=== PATIENT | male | born 1990 | race Caucasian/White ===

== ENCOUNTER → 2016-07-14 | Outpatient (CLI) | payer OTHER ==
--- NOTE | 2016-07-14 16:33 | US ---
EXAMINATION TYPE: US abdomen limited DATE OF EXAM: 07/14/2016 4:03 PM COMPARISON: NONE CLINICAL HISTORY: 26-year-old male K43.9 Ventral Hernia. Patient lifts weights and felt strain, now h as palpable area just superior to the umbilicus, also, the physician felt left lower abdominal wall m ay be of concern as well TECHNIQUE: Multiple targeted sonographic images were obtained. Assess for hernia at location of: sup erior to umbilicus and lower left abdominal wall Real-time scanning was performed by the bench tool maker utilizing Valsalva and additional dynamic maneuve rs to assess for hernia. FINDINGS: 1. At patient's area of concern just superior to the umbilicus there is a break in the abdominal wal l musculature measuring approximately 5 mm wide with non peristalsing content extending anteriorly in to the subcutaneous fat. This hernia sac is not well-defined but may measure up to 2.3 cm wide. 2. At the lower left abdominal wall, no discrete abnormality is identified. IMPRESSION: 1. Suggestion of a small ventral midline supraumbilical hernia measuring approximately 2.3 cm wide wi th the abdominal wall defect approximately 5 mm wide. No herniating small bowel seen. 2. No specific abnormality seen along the anterior abdominal wall of the left lower quadrant.
== END | disposition home or self-care (01) ==
LOC: RADUSWWP 15:43
PROVIDERS: ATTEND Family Medicine
DX: K43.9 Ventral hernia without obstruction or gangrene (principal)
CPT/HCPCS: 76705

== ENCOUNTER 2017-04-10 05:33 | Observation (INO) | payer OTHER ==
[2017-04-06 11:33] VITALS: BMI 31.6
--- NOTE | 2017-04-09 15:06 | P.GSHP ---
History of Present Illness H&P Date: 04/10/17 Chief Complaint: Ventral hernia Patient was last seen in September in the office. The patient has complaints of a small incarcerated ventral hernia and a small umbilical hernia. Recently he contacted us to schedule surgical repair. Denies nausea vomiting. Increased pain with lifting and coughing. No change in bowel habits. Past Medical History Past Medical History: GERD/Reflux, GI Bleed Additional Past Medical History / Comment(s): current cold symptoms,abdominal hernia,neuropathy, crohns,chronic left hand pain. History of Any Multi-Drug Resistant Organisms: None Reported Past Surgical History: Orthopedic Surgery Additional Past Surgical History / Comment(s): FACIAL RECONSTRUCTION,HAND RECONSTRUCTION X3 , RIGHT INDEX FINGER SURGERY Past Anesthesia/Blood Transfusion Reactions: No Reported Reaction Additional Past Anesthesia/Blood Transfusion Reaction / Comment(s): no hx blood transfusion Smoking Status: Former smoker - Past Family History Mother Family Medical History: No Reported History Father Family Medical History: No Reported History Medications and Allergies Home Medications Medication Instructions Recorded Confirmed Type Ranitidine HCl [Zantac] 150 mg PO DAILY PRN 04/28/15 04/06/17 History Cyclobenzaprine [Flexeril] 10 mg PO TID PRN 04/06/17 04/06/17 History Escitalopram Oxalate [Lexapro] 10 mg PO QAM 04/06/17 04/06/17 History Lansoprazole [Prevacid] 30 mg PO QAM 04/06/17 04/06/17 History Nyquil 1 dose PO DAILY PRN 04/06/17 04/06/17 History traMADol HCL [Ultram] 50 mg PO BID PRN 04/06/17 04/06/17 History Allergies Allergy/AdvReac Type Severity Reaction Status Date / Time cefixime [From Suprax] Allergy Anaphylaxis Verified 04/06/17 11:20 Surgical - Exam Physical exam: General: Well-developed, well-nourished HEENT: Normocephalic, sclerae nonicteric Abdomen: Nontender, nondistended, incarcerated ventral hernia 2.5 cm above the umbilicus, small reducible umbilical hernia Extremities: No edema Neuro: Alert and oriented Assessment and Plan (1) Ventral hernia Narrative/Plan: Will proceed with operative repair ventral hernia and possible repair of umbilical hernia with possible mesh. Risks of bleeding, infection, recurrence, bladder and bowel injury, numbness, nerve injury were discussed with the patient. The patient understands and wishes to proceed. Status: Acute Code(s): K43.9 - VENTRAL HERNIA WITHOUT OBSTRUCTION OR GANGRENE SNOMED Code(s): 855194841
[~2017-04-10 05:33] MED LIST: DEXAMETHASONE SOD PHOSPHATE 10 MG/ML 1 ML VIAL IV ONE; MIDAZOLAM 2 MG/2 ML VIAL IV PRN; MORPHINE SULFATE 4 MG/ML SYRINGE IV PRN; ONDANSETRON 4 MG/2 ML VIAL IVP ONE; ONDANSETRON 4 MG/2 ML VIAL IVP PRN
[2017-04-10] MEDS ORDERED: LIDOCAINE 1% 20 ML VIAL (10MG/ML) FOR IV START INTRADERMA ONE (06:45)
[2017-04-10] MEDS: LACTATED RINGERS 1,000 ML IV SCH ×2 (06:45→21:32)
[2017-04-10] MEDS ORDERED: SUCCINYLCHOLINE CHLORIDE 100 MG/5 ML SYR IV ONE (08:12)
[2017-04-10] MEDS ORDERED: NEOSTIGMINE 1 MG/ML 10 ML VIAL ONE (08:12)
[2017-04-10] MEDS ORDERED: PROPOFOL 10 MG/ML 20 ML VIAL IV ONE (08:12)
[2017-04-10] MEDS ORDERED: ROCURONIUM BROMIDE 10 MG/ML 10 ML VIAL IV ONE (08:12)
[2017-04-10] MEDS ORDERED: MIDAZOLAM 2 MG/2 ML VIAL ONE (08:12)
[2017-04-10] MEDS ORDERED: fentaNYL (PF) 50 MCG/ML 2 ML AMP ONE (08:12)
[2017-04-10] MEDS ORDERED: GLYCOPYRROLATE 0.2 MG/ML 2 ML VIAL ONE (08:12)
[2017-04-10] MEDS ORDERED: LIDOCAINE 1% INJ 10MG/ML (20 ML MDV) ONE (08:12)
[2017-04-10] MEDS: LEVOFLOXACIN 500MG-D5W PMX 500 MG in DEXTROSE/WATER 1 100ML.BAG IVPB ONE ×2 (08:16→08:22)
[2017-04-10] MEDS: CLINDAMYCIN 900 MG in DEXTROSE 5% IN WATER 50 ML IVPB ONE ×4 (08:24→08:35)
[2017-04-10] MEDS ORDERED: LACTATED RINGERS 1,000 ML IV ONE (09:30)
[2017-04-10] MEDS ORDERED: HYDROcodone/APAP 5-325MG 1 EACH TAB PO PRN (09:36)
[2017-04-10] MEDS ORDERED: NALOXONE 0.4 MG/ML 1 ML VIAL IV PRN ×2 (09:36→13:35)
--- NOTE | 2017-04-10 09:41 | P.OP ---
Date of Procedure: 04/10/17 Procedure(s) Performed: PREOPERATIVE DIAGNOSIS: Incarcerated incisional and reducible Umbilical hernia POSTOPERATIVE DIAGNOSIS: Same PROCEDURE: Repair incarcerated incisional and reducible umbilical hernia with mesh SURGEON: Sagar EBL: Minimal ANESTHESIA: General COMPLICATIONS: None OPERATIVE PROCEDURE: The patient was placed in the operating table in the supine position. A vertical supraumbilical incision was made using the scalpel. The subcutaneous tissues were dissected using electrocautery. The patient was found to have 3 ventral hernias and a single umbilical hernia. The largest defect was approximately 1.5 cm. The umbilical and the 2 other ventral hernias were 1 cm or less. These were all very close in proximity and I incorporated all into one larger fascial opening. The preperitoneal space was circumferentially dissected. This allowed for adequate space of our mesh. There was a small defect in the peritoneum which was closed using a running 2-0 Vicryl stitch. The 8 cm ventral X mesh was placed beneath the fascia. This was sutured to the fascia using interrupted 0 Ethibond transvaginal sutures. I then reapproximated the fascia in the midline using [id number] 0 Ethibond sutures. The subcutaneous tissues were reapproximated using inverted 3-0 Vicryl sutures. The umbilicus was tacked back down to the fascia using a 3-0 Vicryl suture. The skin was closed using 4-0 Monocryl sutures. Steri-Strips and sterile dressings were then applied. DISPOSITION: Stable to recovery room
[2017-04-10] MEDS: HYDROmorphone 0.5 MG/0.5 ML SYRINGE IVP PRN ×5 (09:47→10:20)
[2017-04-10] MEDS ORDERED: diphenhydrAMINE 50 MG/ML 1 ML VIAL IVP ONE ×2 (09:55→10:12)
[2017-04-10] MEDS ORDERED: HYDROmorphone 4 MG/ML 1 ML SYRINGE IVP ONE (10:02)
[2017-04-10] MEDS ORDERED: oxyCODONE-APAP 5-325MG 1 EACH TAB PO ONE (11:55)
[2017-04-10] MEDS ORDERED: traMADol 50 MG TAB PO PRN (13:35)
[2017-04-10] MEDS: KETOROLAC 30 MG/ML 1 ML VIAL IVP SCH ×3 (15:24→20:10)
[2017-04-10] MEDS: oxyCODONE-APAP 5-325MG 1 EACH TAB PO PRN ×2 (15:25→20:12)
[2017-04-10] MEDS: HEPARIN SODIUM,PORCINE 5,000 UNIT/ML 1 ML VIAL SQ SCH ×2 (17:12→23:26)
[2017-04-10] MEDS: HYDROmorphone 2 MG/ML 1 ML SYRINGE IVP PRN ×2 (18:17→21:18)
[2017-04-10] MEDS: DOCUSATE 100 MG CAP PO SCH (20:13)
[2017-04-11] MEDS: HYDROmorphone 2 MG/ML 1 ML SYRINGE IVP PRN ×3 (00:13→06:13)
[2017-04-11] MEDS: oxyCODONE-APAP 5-325MG 1 EACH TAB PO PRN ×2 (01:40→10:32)
[2017-04-11] MEDS: KETOROLAC 30 MG/ML 1 ML VIAL IVP SCH ×3 (01:54→12:46)
[2017-04-11] MEDS ORDERED: FAMOTIDINE 20 MG TAB PO PRN (08:14)
[2017-04-11] MEDS ORDERED: PANTOPRAZOLE 40 MG/10 ML VIAL IVP STA (08:16)
[2017-04-11 08:26] VITALS: BP 124/88; PULSE 72; RESP 16; TEMP 98.1
[2017-04-11] MEDS: HEPARIN SODIUM,PORCINE 5,000 UNIT/ML 1 ML VIAL SQ SCH (09:14)
[2017-04-11] MEDS: DOCUSATE 100 MG CAP PO SCH (09:14)
--- NOTE | 2017-04-11 12:17 | P.PN ---
Subjective Progress Note Date: 04/11/17 Patient is an 27-year-old gentleman who is status post umbilical hernia repair, open. His pain is much improved today. No reports of nausea and vomiting. He is tolerating diet. Objective - Vital Signs Vital signs: Vital Signs Temp 98.1 F 04/11/17 08:00 Pulse 72 04/11/17 08:00 Resp 16 04/11/17 08:00 BP 124/88 04/11/17 08:00 Pulse Ox 99 04/11/17 08:00 Intake & Output 04/10/17 04/11/17 04/11/17 18:59 06:59 18:59 Intake Total 1876 1260 Output Total 5 Balance 1871 1260 Weight 108.862 kg Intake: IV 1756 Intake, IV Titration 160 Amount Lactated Ringers 1,000 ml 160 @ 20 mls/hr IV .Q24H MAGDALENA Rx#:[id number] Oral 120 1100 Output: Estimated Blood Loss 5 Other: Voiding Method Toilet Toilet # Voids 3 - Exam GENERAL: Well developed and in no acute distress. Pleasant. HEENT: No sclera icterus. Extraocular movements grossly intact. Moist buccal mucosa. Head is atraumatic, normocephalic. Hears conversational speech. No nasal drainage. NECK: Supple without lymphadenopathy. No JV distention. CHEST: Non-labored respirations and equal bilateral excursions. CARDIOVASCULAR: Regular rate and rhythm. Palpable 2+ radial pulses. ABDOMEN: Soft. Nondistended. Abdominal binder present. Superficial dressing changed. Minimal serosanguineous drainage. No signs of infection. No peritonitis. MUSCULOSKELETAL: No clubbing, cyanosis or edema. NEUROLOGIC: No focal or lateralizing signs. PSYCH: Appropriate affect. Alert and oriented to person, place and time. SKIN: Good skin turgor. Well perfused. Assessment and Plan (1) Ventral hernia Current Visit: Yes Status: Acute Code(s): K43.9 - VENTRAL HERNIA WITHOUT OBSTRUCTION OR GANGRENE SNOMED Code(s): 376898449 Plan: 1. Pain prescriptions were discussed. Additional ibuprofen was written on his behalf. 2. Clinically he is doing well and may be discharged home. 3. Wound care instructions was also reviewed at length. I am rounding on behalf of Dr. Keith.
--- NOTE | 2017-04-11 12:18 | P.DS ---
Providers Date of admission: 04/10/17 21:29 Expected date of discharge: 04/11/17 Attending physician: Antonio Keith Primary care physician: Mart Luo - Discharge Diagnosis(es) (1) Ventral hernia Current Visit: Yes Status: Acute Hospital Course: The patient's is a 27-year-old gentleman who was admitted secondary to abdominal pain and ventral hernia. He is status post repair. He is tolerating diet. Pain is finally controlled. Procedures: Open ventral hernia repair Patient Condition at Discharge: Stable Plan - Discharge Summary Discharge Rx Participant: No New Discharge Prescriptions: New Hydrocodone/Acetaminophen [[place] 5-325] 1 - 2 each PO Q4HR PRN #30 tab PRN Reason: pain Ibuprofen [Motrin] 600 mg PO Q8HR PRN #30 tab PRN Reason: Pain Continue Ranitidine HCl [Zantac] 150 mg PO DAILY PRN PRN Reason: Heartburn traMADol HCL [Ultram] 50 mg PO BID PRN PRN Reason: Pain Lansoprazole [Prevacid] 30 mg PO QAM Cyclobenzaprine [Flexeril] 10 mg PO TID PRN PRN Reason: Pain Escitalopram Oxalate [Lexapro] 10 mg PO QAM Nyquil 1 dose PO DAILY PRN PRN Reason: Cold Symptoms Discharge Medication List Ranitidine HCl [Zantac] 150 mg PO DAILY PRN 04/28/15 [History] Cyclobenzaprine [Flexeril] 10 mg PO TID PRN 04/06/17 [History] Escitalopram Oxalate [Lexapro] 10 mg PO QAM 04/06/17 [History] Lansoprazole [Prevacid] 30 mg PO QAM 04/06/17 [History] Nyquil 1 dose PO DAILY PRN 04/06/17 [History] traMADol HCL [Ultram] 50 mg PO BID PRN 04/06/17 [History] Hydrocodone/Acetaminophen [[place] 5-325] 1 - 2 each PO Q4HR PRN #30 tab 04/10/17 [Rx] Ibuprofen [Motrin] 600 mg PO Q8HR PRN #30 tab 04/11/17 [Rx] Follow up Appointment(s)/Referral(s): Antonio Keith MD [Medical Doctor] - 04/23/17 9:20 am Patient Instructions/Handouts: *Surgery [facility] - (Anesthesia) Discharge Instructions Outpatient Surgery, Ventral Hernia Repair (GEN) Activity/Diet/Wound Care/Special Instructions: NO LIFTING - NO DRIVING WEAR ABDOMINAL BINDER AT ALL TIMES EXCEPT FOR SHOWERING - MAY REMOVE ABDOMINAL DRESSING AND SHOWER IN 24-48 HOURS APPLY ICE TO ABDOMEN (OVER CLOTHING ) FOR COMFORT NEW SCRIPT FOR PERCOCET, TAKE PRESCRIBED FOR DISCOMFORT. Discharge Disposition: HOME SELF-CARE
== END 2017-04-11 12:45 | disposition home or self-care (01) ==
LOC: OR 05:33 → 3OBS 09:45 → OR 21:29
PROVIDERS: ADMIT Surgery; ATTEND Surgery
DX: K43.0 Incisional hernia with obstruction, without gangrene (principal); K42.9 Umbilical hernia without obstruction or gangrene; K21.9 Gastro-esophageal reflux disease without esophagitis; K50.911 Crohn's disease, unspecified, with rectal bleeding; Z88.1 Allergy status to other antibiotic agents; Z79.899 Other long term (current) drug therapy; Z87.891 Personal history of nicotine dependence; Z87.19 Personal history of other diseases of the digestive system
CPT/HCPCS: 49561; 49568; 88302; G0378 ×2; C1781; J2250; J1170 ×4; J1200; J1644 ×2; J1100; J2710; J2405; J1956; J2001; J3010; J1885 ×2; J0330; J2704; C9113

== ENCOUNTER 2018-07-15 13:20 | Emergency (ER) | payer OTHER ==
[2018-07-15] MEDS ORDERED: KETOROLAC 60 MG/2 ML VIAL IM STA (14:31)
[2018-07-15] MEDS ORDERED: KETOROLAC 30 MG/ML 1 ML VIAL IVP STA (14:42)
--- NOTE | 2018-07-15 14:45 | ED ---
General Adult HPI - General Chief complaint: Urogenital Stated complaint: testicular pain Time Seen by Provider: 07/15/18 14:04 Source: patient, RN notes reviewed, old records reviewed Mode of arrival: ambulatory Limitations: no limitations - History of Present Illness Initial comments: 28-year-old male patient passed history of gastroesophageal reflux disease presents to ED with waxing and waning pain in right testicle for approximately 3 weeks. Patient states that the pain in his right testicle is worse with weight- bearing activity, improves with rest. Patient has not ibeen previously evaluated for this problem. Patient denies any trauma. Patient states that he does not have any concern for any sexually transmitted infections. Patient denies any previous history of urologic disorder including undescended testicle. Patient does have a past surgical history of approximately 5 ventral hernia repairs per patient. Patient however states that he has not had any inguinal hernia appears. Patient denies any other complaints. Systemic: Pt denies fatigue, myalgia, fever/chills, rash. Pt denies weakness, night sweats, weight loss. Neuro: Pt denies headache, visual disturbances, syncope or pre-syncope. HEENT: Pt denies ocular discharge or irritation, otalgia, rhinorrhea, pharyngitis or notable lymphadenopathy. Cardiopulmonary: Pt denies chest pain, SOB, heart palpitations, dyspnea on exertion. Abdominal/GI: Pt denies abdominal pain, n/v/d. : Pt denies dysuria, burning w/ urination, frequency/urgency. Denies new onset urinary or bowel incontinence. MSK: Pt denies myalgia, loss of strength or function in extremities. Neuro: Pt denies new onset weakness, paresthesias. - Related Data Home Medications Medication Instructions Recorded Confirmed Ranitidine HCl [Zantac] 150 mg PO BID 04/28/15 07/15/18 Omeprazole 40 mg PO DAILY 07/15/18 07/15/18 Allergies Allergy/AdvReac Type Severity Reaction Status Date / Time cefixime [From Suprax] Allergy Anaphylaxis Verified 07/15/18 14:32 Review of Systems ROS Statement: Those systems with pertinent positive or pertinent negative responses have been documented in the HPI. ROS Other: All systems not noted in ROS Statement are negative. Past Medical History Past Medical History: GERD/Reflux, GI Bleed Additional Past Medical History / Comment(s): current cold symptoms,abdominal hernia,neuropathy, crohns,chronic left hand pain. History of Any Multi-Drug Resistant Organisms: None Reported Past Surgical History: Orthopedic Surgery Additional Past Surgical History / Comment(s): FACIAL RECONSTRUCTION,HAND RECONSTRUCTION X3 , RIGHT INDEX FINGER SURGERY Past Anesthesia/Blood Transfusion Reactions: No Reported Reaction Additional Past Anesthesia/Blood Transfusion Reaction / Comment(s): no hx blood transfusion Past Psychological History: Anxiety, Depression Smoking Status: Current some day smoker Past Alcohol Use History: Occasional Past Drug Use History: Marijuana - Past Family History Mother Family Medical History: No Reported History Father Family Medical History: No Reported History General Exam - General Exam Comments Initial Comments: Constitutional: NAD, AOX3, Pt has pleasant affect. HEENT: NC/AT, trachea midline, neck supple, no lymphadenopathy. Posterior pharynx non erythematous, without exudates. External ears appear normal, without discharge. Mucous membranes moist. Eyes PERRLA, EOM intact. There is no scleral icterus. No pallor noted. Cardiopulmonary: RRR, no murmurs, rubs or gallops, no JVD noted. Lungs CTAB in anterior and posterior clement. No peripheral edema. Abdominal exam: Abdomen soft and non-distended. Abdomen non-tender to palpation in all 4 quadrants. Bowel sounds active in LLQ. No hepatosplenomegaly. No ecchymosis Neuro: CN II-XII grossly intact. No nuchal rigidity. MSK: No posterior calf tenderness bilaterally, homans sign negative bilaterally. Posterior tibialis and radial pulse +2 bilaterally. Sensation intact in upper and lower extremities. Full active ROM in upper and lower extremities, 5/5 stregnth. Urologic: Right testicle mildly tender to palpation. Left testicle nontender to palpation. Cremasteric reflex intact bilaterally. No high riding testicle. No blue dot sign. No lesion or ulcerations. No discharge. Limitations: no limitations Course Vital Signs 07/15/18 13:53 Temperature 98.1 F Pulse Rate 108 H Respiratory 20 Rate Blood Pressure 137/80 O2 Sat by Pulse 98 Oximetry Medical Decision Making - Medical Decision Making 28-year-old male patient passed history of gastroesophageal reflux disease presents to ED with waxing and waning pain in right testicle for approximately 3 weeks. Patient states that the pain in his right testicle is worse with weight- bearing activity, improves with rest. Patient has not ibeen previously evaluated for this problem. Patient denies any trauma. Patient states that he does not have any concern for any sexually transmitted infections. Patient denies any previous history of urologic disorder including undescended testicle. Patient does have a past surgical history of approximately 5 ventral hernia repairs per patient. Patient however states that he has not had any inguinal hernia repairs. Patient denies any other complaints. Physical exam displayed: Right testicle mildly tender to palpation. Left testicle nontender to palpation. Cremasteric reflex intact bilaterally. No high riding testicle. No blue dot sign. No lesion or ulcerations. No discharge. Laboratory investigations revealed nonpassive CBC, CMP, UA. Ultrasound of scrotum revealed solitary calculus of the left testicle, scrotal calls patient's. Discussed possibly germ cell tumor. Benign right epididymal cyst. No sonographic evidence of testicular torsion or epididymalorchitis. Patient had a minor vasovagal episode during blood draw. This episode was transient. Patient currently asymptomatic. Neurologic exam within normal limits. Patient discharged with urologic consult. Patient will follow-up with urologist in 1-2 days. Patient to follow up with primary care provider was 2 days. Patient return to ER condition worsens in anyway. Case discussed with Dr. Rueda. - Lab Data Result diagrams: 07/15/18 15:00 07/15/18 15:00 Lab Results 07/15/18 07/15/18 07/15/18 Range/Units 15:00 15:00 15:00 WBC 5.0 (3.8-10.6) k/uL RBC 4.75 (4.30-5.90) m/uL Hgb 14.7 (13.0-17.5) gm/dL Hct 42.5 (39.0-53.0) % MCV 89.5 (80.0-100.0) fL MCH 31.0 (25.0-35.0) pg MCHC 34.7 (31.0-37.0) g/dL RDW 12.3 (11.5-15.5) % Plt Count 308 (150-450) k/uL Neutrophils % 58 % Lymphocytes % 28 % Monocytes % 6 % Eosinophils % 5 % Basophils % 1 % Neutrophils # 2.9 (1.3-7.7) k/uL Lymphocytes # 1.4 (1.0-4.8) k/uL Monocytes # 0.3 (0-1.0) k/uL Eosinophils # 0.2 (0-0.7) k/uL Basophils # 0.1 (0-0.2) k/uL Sodium 142 (137-145) mmol/L Potassium 4.6 (3.5-5.1) mmol/L Chloride 105 (98-107) mmol/L Carbon Dioxide 28 (22-30) mmol/L Anion Gap 9 mmol/L BUN 12 (9-20) mg/dL Creatinine 0.79 (0.66-1.25) mg/dL Est GFR (CKD-EPI)AfAm >90 (>60 ml/min/1.73 sqM) Est GFR (CKD-EPI)NonAf >90 (>60 ml/min/1.73 sqM) Glucose 70 L (74-99) mg/dL POC Glucose (mg/dL) (75-99) mg/dL POC Glu Fabric Coating Supervisor ID Calcium 10.2 (8.4-10.2) mg/dL Total Bilirubin 0.5 (0.2-1.3) mg/dL AST 26 (17-59) U/L ALT 50 (21-72) U/L Alkaline Phosphatase 39 (38-126) U/L Total Protein 7.2 (6.3-8.2) g/dL Albumin 4.8 (3.5-5.0) g/dL Urine Color Colorless Urine Appearance Clear (Clear) Urine pH 5.5 (5.0-8.0) Ur Specific [place] 1.005 (1.001-1.035) Urine Protein Negative (Negative) Urine Glucose (UA) Negative (Negative) Urine Ketones Negative (Negative) Urine Blood Negative (Negative) Urine Nitrite Negative (Negative) Urine Bilirubin Negative (Negative) Urine Urobilinogen <2.0 (<2.0) mg/dL Ur Leukocyte Esterase Negative (Negative) 07/15/18 Range/Units 15:03 WBC (3.8-10.6) k/uL RBC (4.30-5.90) m/uL Hgb (13.0-17.5) gm/dL Hct (39.0-53.0) % MCV (80.0-100.0) fL MCH (25.0-35.0) pg MCHC (31.0-37.0) g/dL RDW (11.5-15.5) % Plt Count (150-450) k/uL Neutrophils % % Lymphocytes % % Monocytes % % Eosinophils % % Basophils % % Neutrophils # (1.3-7.7) k/uL Lymphocytes # (1.0-4.8) k/uL Monocytes # (0-1.0) k/uL Eosinophils # (0-0.7) k/uL Basophils # (0-0.2) k/uL Sodium (137-145) mmol/L Potassium (3.5-5.1) mmol/L Chloride (98-107) mmol/L Carbon Dioxide (22-30) mmol/L Anion Gap mmol/L BUN (9-20) mg/dL Creatinine (0.66-1.25) mg/dL Est GFR (CKD-EPI)AfAm (>60 ml/min/1.73 sqM) Est GFR (CKD-EPI)NonAf (>60 ml/min/1.73 sqM) Glucose (74-99) mg/dL POC Glucose (mg/dL) 70 L (75-99) mg/dL POC Glu Fabric Coating Supervisor ID Shavonne Matthew Calcium (8.4-10.2) mg/dL Total Bilirubin (0.2-1.3) mg/dL AST (17-59) U/L ALT (21-72) U/L Alkaline Phosphatase (38-126) U/L Total Protein (6.3-8.2) g/dL Albumin (3.5-5.0) g/dL Urine Color Urine Appearance (Clear) Urine pH (5.0-8.0) Ur Specific [place] (1.001-1.035) Urine Protein (Negative) Urine Glucose (UA) (Negative) Urine Ketones (Negative) Urine Blood (Negative) Urine Nitrite (Negative) Urine Bilirubin (Negative) Urine Urobilinogen (<2.0) mg/dL Ur Leukocyte Esterase (Negative) - EKG Data -: EKG Interpreted by Nh EKG Comments: Ventricular rate 93, [place] interval 1:30, QRS 98, QT/QTC 382/474. Normal sinus rhythm, normal EKG. No concern for acute ischemia. Disposition Clinical Impression: Testicular pain Disposition: HOME SELF-CARE Condition: Stable Instructions (If sedation given, give patient instructions): Testicle Pain (ED) Additional Instructions: Patient to adhere to previously discussed treatment plan and will take medication(s) as directed. Patient to follow up with PCP in 1-2 days. Patient to return to ED if symptoms do not improve. Follow-up with urologist in 1-2 days. Return to ER if condition worsens in any way. Is patient prescribed a controlled substance at d/c from ED?: No Referrals: Mart Luo MD [Primary Care Provider] - 1-2 days Chemo Graff MD [STAFF PHYSICIAN] - 1-2 days
[2018-07-15] MEDS ORDERED: SODIUM CHLORIDE 0.9% 500 ML 500 ML IV STA (14:52)
[2018-07-15 15:04] LABS: Glucose,Whole Blood 70 mg/dL (75-99)
[2018-07-15 15:36] LABS: Basophils # (A) 0.1 k/uL (0-0.2); Basophils % (A) 1 %; Eosinophils # (A) 0.2 k/uL (0-0.7); Eosinophils % (A) 5 %; HCT 42.5 % (39.0-53.0); HGB 14.7 gm/dL (13.0-17.5); Lymphocytes # (A) 1.4 k/uL (1.0-4.8); Lymphocytes % (A) 28 %; MCHC 34.7 g/dL (31.0-37.0); MCV 89.5 fL (80.0-100.0); Mean Platelet Volume 6.2; Monocytes # (A) 0.3 k/uL (0-1.0); Monocytes % (A) 6 %; Neutrophils # (A) 2.9 k/uL (1.3-7.7); Neutrophils % (A) 58 %; Platelet Count 308 k/uL (150-450); RBC 4.75 m/uL (4.30-5.90); RDW 12.3 % (11.5-15.5)
[2018-07-15 15:43] LABS: ALT 50 U/L (21-72); AST 26 U/L (17-59); Albumin 4.8 g/dL (3.5-5.0); Alkaline Phosphatase 39 U/L (38-126); Anion Gap 9 mmol/L; Appearance,Urine Clear (Clear); Bilirubin,Urine Negative (Negative); Blood Urea Nitrogen 12 mg/dL (9-20); Blood,Urine Negative (Negative); Calcium 10.2 mg/dL (8.4-10.2); Carbon Dioxide 28 mmol/L (22-30); Chloride 105 mmol/L (98-107); Color,Urine Colorless; Glucose 70 mg/dL (74-99); Glucose,Urine (UA) Negative (Negative); Ketones,Urine Negative (Negative); Leukocyte Esterase,Urine Negative (Negative); Nitrite,Urine Negative (Negative); PH, Urine 5.5 (5.0-8.0); Potassium 4.6 mmol/L (3.5-5.1); Protein,Urine Negative (Negative); Sodium 142 mmol/L (137-145); Specific Gravity,Urine 1.005 (1.001-1.035); Total Bilirubin 0.5 mg/dL (0.2-1.3); Total Protein 7.2 g/dL (6.3-8.2); Urobilinogen,Urine <2.0 mg/dL (<2.0)
--- NOTE | 2018-07-15 16:18 | US ---
EXAMINATION TYPE: US scrotum with doppler. Grayscale and color Doppler Duplex imaging performed of bebeto lambert scrotum. DATE OF EXAM: 07/15/2018 COMPARISON: NONE CLINICAL HISTORY: Pain. Pain right testicle x 3 weeks; pain worse last 2 days. EXAM MEASUREMENTS: TESTICLES: Right Testicle: 5.9 x 3.5 x 2.9 cm Left Testicle: 5.4 x 3.4 x 3.4 cm EPIDIDYMIS HEAD: Right Epididymis: 0.7 x 0.9 cm Left Epididymis: 1.4 x 0.8 cm Doppler performed to assess for testicular vascularity; good bilateral color flow and waveforms are s een. There is no evidence of testicular torsion. Presence of hydroceles: Not seen Presence of varicoceles: Not seen Anechoic area seen right epididymal head measurin.3 x 0.3 x 0.3 cm. Hyperechoic area with shadowing seen left testicle measurin.2 x 0.2 x 0.2, a number of calcified densities do not meet criteria for testicular microlithiasis. Epididymal head appears slightly hetero geneous bilaterally. IMPRESSION: 1. Solitary calculus in the left testicle. Although this can be seen in sequela prior hematoma or gra nulomatous orchitis scrotal calcifications can also be seen in burnt out germ cell tumors in patients of this age and CT. 2. Benign right epididymal cyst. 3. No sonographic evidence of testicular torsion at the time of examination nor epididymoorchitis.
[2018-07-15] MEDS ORDERED: HYDROcodone/APAP 5-325MG 1 EACH TAB PO STA (16:42)
[2018-07-15 17:43] VITALS: BP 126/79; PULSE 90; RESP 18; TEMP 98.9
== END 2018-07-15 17:44 | disposition home or self-care (01) ==
LOC: EC 13:20
DX: N50.811 Right testicular pain (principal); N50.89 Other specified disorders of the male genital organs; N50.3 Cyst of epididymis; K21.9 Gastro-esophageal reflux disease without esophagitis; F17.200 Nicotine dependence, unspecified, uncomplicated; Z88.1 Allergy status to other antibiotic agents; Z79.899 Other long term (current) drug therapy; Z98.890 Other specified postprocedural states; Z53.8 Procedure and treatment not carried out for other reasons
CPT/HCPCS: 36415; 93005; 80053; 85025; 81003; 76870; 99285; 96360; 96361; 96372; J1885; 93975

== ENCOUNTER 2024-02-25 13:41 | Emergency (ER) | payer OTHER ==
[2024-02-25 13:55] VITALS: TEMP 98.3
[2024-02-25] MEDS: KETOROLAC 15 MG/ML 1 ML VIAL IVP STA ×2 (15:10→16:19)
[2024-02-25] MEDS: HYDROmorphone 1 MG/ML 1 ML SYRINGE IVP STA (15:10)
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
[2024-02-25 15:23] VITALS: RESP 17
[2024-02-25] MEDS: ORPHENADRINE 30 MG/ML 2 ML VIAL IVP STA (16:27)
[2024-02-25 16:30] VITALS: BP 128/85; PULSE 67
== END 2024-02-25 16:33 | disposition home or self-care (01) ==
LOC: EC 13:41
DX: G89.29 Other chronic pain (principal); M54.9 Dorsalgia, unspecified; Z88.1 Allergy status to other antibiotic agents
CPT/HCPCS: 99283; 96374; 96375 ×2; 96376; J2360; J1171; J1885